=== PATIENT | male | born 1950 | race Caucasian/White ===

== ENCOUNTER → 2017-04-24 | Outpatient (CLI) | payer OTHER ==
[~2017-04-24] MED LIST: AMLO5TAB2 PO; ASPI-496 PO; ATOR80TA PO; CHLO5CAP2 PO; DICY10CA3 PO; MULT-257 PO; MULT1TAB13 PO; NEBI20TA2 PO; OMEP1CAP25 PO; TRAM-28 PO
[2017-04-24 10:09] LABS: ASPARTATE AMINO TRANSFERASE 32 U/L (15-37); BLOOD UREA NITROGEN 24 mg/dL (7-18)
== END | disposition home or self-care (01) ==
LOC: LAB 09:40
PROVIDERS: ATTEND Internal Medicine Gastroenterology
DX: K21.9 Gastro-esophageal reflux disease without esophagitis (principal); R74.8 Abnormal levels of other serum enzymes; K57.30 Diverticulosis of large intestine without perforation or abscess without bleeding; E78.00 Pure hypercholesterolemia, unspecified; G47.30 Sleep apnea, unspecified
CPT/HCPCS: 36415; 80053; 82784; 82977; 83516; 85025

== ENCOUNTER → 2017-06-12 | Outpatient (CLI) | payer OTHER ==
[~2017-06-12] MED LIST changes: -TRAM-28 PO; +TRAM-47 PO
== END | disposition home or self-care (01) ==
LOC: CFH 15:17
PROVIDERS: ATTEND Internal Medicine Cardiovascular Disease
DX: I08.3 Combined rheumatic disorders of mitral, aortic and tricuspid valves (principal); I25.10 Atherosclerotic heart disease of native coronary artery without angina pectoris; I10 Essential (primary) hypertension
CPT/HCPCS: 93306

== ENCOUNTER → 2017-06-13 | Outpatient (CLI) | payer OTHER ==
[2017-06-13 09:13] LABS: ASPARTATE AMINO TRANSFERASE 27 U/L (15-37); BLOOD UREA NITROGEN 21 mg/dL (7-18)
== END | disposition home or self-care (01) ==
LOC: LAB 08:50
PROVIDERS: ATTEND Internal Medicine Cardiovascular Disease
DX: E78.2 Mixed hyperlipidemia (principal); I10 Essential (primary) hypertension
CPT/HCPCS: 36415; 80053; 80061

== ENCOUNTER → 2017-09-29 | Outpatient (CLI) | payer OTHER | END | disposition home or self-care (01) | LOC: CFH 15:30 | PROVIDERS: ATTEND Registered Nurse Registered Nurse First Assistant | DX: M41.86 Other forms of scoliosis, lumbar region (principal); M51.36 Other intervertebral disc degeneration, lumbar region; M48.061 Spinal stenosis, lumbar region without neurogenic claudication; M25.78 Osteophyte, vertebrae; M48.07 Spinal stenosis, lumbosacral region | CPT/HCPCS: 72110; 72148 ==

== ENCOUNTER → 2017-12-26 | Outpatient (CLI) | payer OTHER ==
[2017-12-26 15:46] LABS: BILIRUBIN, DIRECT 0.2 mg/dL (0.1-0.2); BILIRUBIN,INDIRECT 0.6 mg/dL (0.0-2.0); BILIRUBIN,TOTAL 0.8 mg/dL (0.2-1.0); TOTAL PROTEIN 7.4 g/dL (6.4-8.2)
== END | disposition home or self-care (01) ==
LOC: LAB 15:17
PROVIDERS: ATTEND Internal Medicine Gastroenterology
DX: R94.5 Abnormal results of liver function studies (principal); R74.8 Abnormal levels of other serum enzymes
CPT/HCPCS: 36415; 80076

== ENCOUNTER → 2018-04-23 | Outpatient (CLI) | payer OTHER | END | disposition home or self-care (01) | LOC: LAB 09:01 | PROVIDERS: ATTEND Internal Medicine Gastroenterology | DX: I10 Essential (primary) hypertension (principal); K21.9 Gastro-esophageal reflux disease without esophagitis; G47.30 Sleep apnea, unspecified; E78.00 Pure hypercholesterolemia, unspecified; E55.9 Vitamin D deficiency, unspecified; M54.9 Dorsalgia, unspecified; R94.5 Abnormal results of liver function studies; R10.13 Epigastric pain | CPT/HCPCS: 82172; 82247; 82465; 82947; 82977; 83010; 83883; 84450; 84460; 84478 ==

== ENCOUNTER → 2018-07-14 | Outpatient (CLI) | payer OTHER ==
[~2018-07-14] MED LIST changes: -AMLO5TAB2 PO; +AMLO5TAB7 PO
== END | disposition home or self-care (01) ==
LOC: CFH 15:18
PROVIDERS: ATTEND Internal Medicine Cardiovascular Disease
DX: I08.1 Rheumatic disorders of both mitral and tricuspid valves (principal); I11.9 Hypertensive heart disease without heart failure; I25.10 Atherosclerotic heart disease of native coronary artery without angina pectoris; E78.5 Hyperlipidemia, unspecified
CPT/HCPCS: 93306

== ENCOUNTER → 2018-08-10 | Outpatient (CLI) | payer OTHER ==
[~2018-08-10] MED LIST changes: +CALCIUM PO; +CHOL200024 PO; +ESOM40CA PO; +METO50TA4 PO; +NORT25CA PO
[2018-08-10 16:20] LABS: BASOPHILS # (AUTO) 0.02 x10^3/uL (0-0.1); BASOPHILS % (AUTO) 0 % (0-1); EOSINOPHILS # (AUTO) 0.11 x10^3/uL (0-0.4); EOSINOPHILS % (AUTO) 2 % (1-7); LYMPHOCYTES % (AUTO) 20 % (22-44); MD NO; MEAN CORPUSCULAR HGB CONC 32.5 g/dL (33.2-36.2); MEAN CORPUSCULAR VOLUME 95.2 fL (81-97); MONOCYTES # (AUTO) 0.46 x10^3/uL (0.2-0.8); MONOCYTES % (AUTO) 7 % (2-9); NEUTROPHILS # (AUTO) 4.37 x10^3/uL (1.8-6.8); NEUTROPHILS % (AUTO) 71 % (42-75); PLATELET COUNT 235 x10^3/uL (130-400); RED BLOOD COUNT 5.25 x10^6/uL (4.38-5.82); RED CELL DISTRIBUTION WIDTH 13.6 % (9.4-14.8)
[2018-08-10 16:28] LABS: ANION GAP 4 mmol/L (5-15); CALCIUM 8.8 mg/dL (8.5-10.1); CHLORIDE 107 mmol/L (98-107); CREATININE 1.05 mg/dL (0.7-1.3)
== END | disposition home or self-care (01) ==
LOC: STAR 15:21
PROVIDERS: ATTEND Internal Medicine Cardiovascular Disease
DX: Z01.818 Encounter for other preprocedural examination (principal); I42.9 Cardiomyopathy, unspecified; I25.10 Atherosclerotic heart disease of native coronary artery without angina pectoris; R93.1 Abnormal findings on diagnostic imaging of heart and coronary circulation
CPT/HCPCS: 36415; 80048; 85025

== ENCOUNTER 2018-08-14 08:03 | Day surgery (SDC) | payer OTHER ==
[~2018-08-14] VITALS: Ht 180.3 cm; Wt 100.0 kg
[2018-08-14] MEDS ORDERED: SODIUM CHLORIDE 0.9% 1,000 ML IV ONE (08:10)
[2018-08-14] MEDS ORDERED: DIPHENHYDRAMINE 50 MG/ML, 1ML IVPush ONE (08:30)
[2018-08-14] MEDS ORDERED: HEPARIN 1,000 UNITS/ML, 10ML ONE (09:25)
[2018-08-14] MEDS ORDERED: FENTANYL PF 100 MCG/2ML ONE (09:25)
[2018-08-14] MEDS ORDERED: LIDOCAINE/PF 1%, 30ML ONE (09:25)
[2018-08-14] MEDS ORDERED: MIDAZOLAM 1 MG/ML, 2ML ONE ×2 (09:25→09:53)
[2018-08-14] MEDS ORDERED: VERAPAMIL 2.5 MG/ML, 2ML ONE (09:25)
[2018-08-14] MEDS ORDERED: NITROGLYCERIN 5 MG/ML, 10ML ONE (09:26)
[2018-08-14] MEDS ORDERED: SODIUM CHLORIDE 0.9% 1,000 ML IV SCH (11:40)
[2018-08-14] MEDS ORDERED: METO100T5 PO (12:12)
[2018-08-14] MEDS ORDERED: SPIR25TA PO (12:13)
[2018-08-14] MEDS ORDERED: VALS160T3 PO (12:16)
== END 2018-08-14 14:22 | disposition home or self-care (01) ==
LOC: CACL 08:03 → EDSTATUS 09:30 → CACL 14:22
PROVIDERS: ATTEND Internal Medicine Cardiovascular Disease
DX: I25.10 Atherosclerotic heart disease of native coronary artery without angina pectoris (principal); I42.9 Cardiomyopathy, unspecified; I10 Essential (primary) hypertension
CPT/HCPCS: 93460; 99156; 99157; C1760; C1769; C1894; J1644; J2250; J3010; J3490; Q9967; J1200

== ENCOUNTER → 2018-10-16 | Outpatient (CLI) | payer OTHER ==
[~2018-10-16] MED LIST changes: +AMLO-150 PO; -AMLO5TAB7 PO; +METO100T5 PO; -NORT25CA PO; +NORT25CA78 PO; +SPIR25TA PO; +VALS160T3 PO
[2018-10-16 11:17] LABS: ANION GAP 6 mmol/L (5-15); CALCIUM 8.9 mg/dL (8.5-10.1); CHLORIDE 104 mmol/L (98-107); CHOLESTEROL, TOTAL 152 mg/dL (140-239); CREATININE 1.06 mg/dL (0.7-1.3); TRIGLYCERIDES 90 mg/dL (50-200); VLDL CHOLESTEROL 18 mg/dL (0-25)
[2018-10-16 11:19] LABS: CHOL/HDL RATIO 2.3; HDL CHOL % 43 % (26-37); HDL CHOLESTEROL (DIRECT) 66 mg/dL (40-60); LDL CHOLESTEROL,CALCULATED 68 mg/dL (54-169)
== END | disposition home or self-care (01) ==
LOC: LAB 10:55
PROVIDERS: ATTEND Internal Medicine Cardiovascular Disease
DX: I25.10 Atherosclerotic heart disease of native coronary artery without angina pectoris (principal); I42.9 Cardiomyopathy, unspecified; I27.0 Primary pulmonary hypertension; J96.11 Chronic respiratory failure with hypoxia; G47.30 Sleep apnea, unspecified; E78.2 Mixed hyperlipidemia; R00.2 Palpitations
CPT/HCPCS: 36415; 80048; 80061

== ENCOUNTER → 2019-01-08 | Outpatient (CLI) | payer OTHER | END | disposition home or self-care (01) | LOC: CFH 15:14 | PROVIDERS: ATTEND Internal Medicine Cardiovascular Disease | DX: I08.8 Other rheumatic multiple valve diseases (principal); I25.10 Atherosclerotic heart disease of native coronary artery without angina pectoris; I42.9 Cardiomyopathy, unspecified | CPT/HCPCS: 93306 ==

== ENCOUNTER → 2019-04-28 | Outpatient (CLI) | payer OTHER ==
[~2019-04-28] MED LIST changes: +IRBE150T25 PO
[2019-04-28 09:10] LABS: BASOPHILS # (AUTO) 0.02 x10^3/uL (0-0.1); BASOPHILS % (AUTO) 0 % (0-1); EOSINOPHILS # (AUTO) 0.13 x10^3/uL (0-0.4); EOSINOPHILS % (AUTO) 3 % (1-7); LYMPHOCYTES # (AUTO) 0.88 x10^3/uL (1-3.4); LYMPHOCYTES % (AUTO) 19 % (22-44); MD NO; MEAN CORPUSCULAR HEMOGLOBIN 30.8 pg (27.5-34.5); MEAN CORPUSCULAR HGB CONC 31.7 g/dL (33.2-36.2); MEAN PLATELET VOLUME 7.5 fL (7.4-10.4); MONOCYTES # (AUTO) 0.39 x10^3/uL (0.2-0.8); MONOCYTES % (AUTO) 9 % (2-9); NEUTROPHILS # (AUTO) 3.15 x10^3/uL (1.8-6.8); NEUTROPHILS % (AUTO) 69 % (42-75); PLATELET COUNT 203 x10^3/uL (130-400); RED BLOOD COUNT 4.48 x10^6/uL (4.38-5.82)
[2019-04-28 09:21] LABS: ALANINE AMINOTRANSFERASE 35 U/L (12-78); ALBUMIN 3.9 g/dL (3.4-5.0); ANION GAP 5 mmol/L (5-15); CALCIUM 8.7 mg/dL (8.5-10.1); CHLORIDE 105 mmol/L (98-107); CHOLESTEROL, TOTAL 160 mg/dL (140-239); CREATININE 0.98 mg/dL (0.7-1.3)
[2019-04-28 09:23] LABS: ALKALINE PHOSPHATASE 126 U/L (45-117); BILIRUBIN,TOTAL 0.5 mg/dL (0.2-1.0); CHOL/HDL RATIO 2.4; HDL CHOL % 42 % (26-37); HDL CHOLESTEROL (DIRECT) 67 mg/dL (40-60); LDL CHOLESTEROL,CALCULATED 71 mg/dL (54-169); LDL/HDL RATIO 1.1 (0.5-3.0); TOTAL PROTEIN 7.2 g/dL (6.4-8.2); TRIGLYCERIDES 111 mg/dL (50-200); VLDL CHOLESTEROL 22 mg/dL (0-25)
== END | disposition home or self-care (01) ==
LOC: LAB 08:57
PROVIDERS: ATTEND Family Medicine
DX: I27.20 Pulmonary hypertension, unspecified (principal)
CPT/HCPCS: 36415; 80053; 80061; 85025

== ENCOUNTER 2019-05-04 16:12 | Inpatient (IN) | payer OTHER, MEDICARE ==
[~2019-05-04] VITALS: Ht 180.3 cm; Wt 98.9 kg
[~2019-05-04 16:12] MED LIST changes: -IRBE150T25 PO
--- NOTE | 2019-05-04 16:41 | NUR ---
PT PRESENTING TO ER FOR NEW ONSET OF AFIB, PT REORTING FEELING SOB WITH WALKING AROUND X1 WK. NO CP, N/V OR DIZZINESS. CONNECTED TO ALL MONIORING, HR RANGING BETWEEN 115-145, ALL OTHER VSS. NOTED OCCASSIONAL PVCs AND COUPLES. IV PLACED, LABS DRAWN. AT BEDSIDE. CALL LIGHT WITHIN REACH. AWAITING MD ASSESSMENT AND ORDERS AT THIS TIME
[2019-05-04] MEDS ORDERED: IRBE150T25 PO (16:47)
--- NOTE | 2019-05-04 17:06 | NUR ---
REPORT GIVEN TO GERRY SALINAS
--- NOTE | 2019-05-04 17:13 | NUR ---
PT. IS RESTING WITHOUT CONCERNS. PT. STATES HE IS IN A POSITION OF COMFORT. SIDERAILS REMAIN UP X 2. PT. HAS THE CP MONITOR IN PLACE. CALL LIGHT IS AT HIS SIDE.
--- NOTE | 2019-05-04 17:17 | NUR ---
DR. LATIF AND DR. STEPHENS ARE AT THE BEDSIDE DISCUSSING THE PLAN OF CARE.
[2019-05-04] MEDS ORDERED: DILTIAZEM 5 MG/ML, 5ML IV ONE (17:30)
[2019-05-04] MEDS ORDERED: SODIUM CHLORIDE FLUSH 10ML SYR IVF ONE (17:30)
[2019-05-04] MEDS ORDERED: DILTIAZEM 5 MG/ML, 5ML ONE (17:39)
[2019-05-04 18:00] LABS: BASOPHILS # (AUTO) 0.02 x10^3/uL (0-0.1); BASOPHILS % (AUTO) 0 % (0-1); EOSINOPHILS # (AUTO) 0.12 x10^3/uL (0-0.4); EOSINOPHILS % (AUTO) 2 % (1-7); LYMPHOCYTES # (AUTO) 1.13 x10^3/uL (1-3.4); LYMPHOCYTES % (AUTO) 21 % (22-44); MD NO; MEAN CORPUSCULAR HEMOGLOBIN 31.9 pg (27.5-34.5); MEAN CORPUSCULAR HGB CONC 32.6 g/dL (33.2-36.2); MEAN CORPUSCULAR VOLUME 97.7 fL (81-97); MEAN PLATELET VOLUME 8.5 fL (7.4-10.4); MONOCYTES # (AUTO) 0.48 x10^3/uL (0.2-0.8); MONOCYTES % (AUTO) 9 % (2-9); NEUTROPHILS # (AUTO) 3.55 x10^3/uL (1.8-6.8); NEUTROPHILS % (AUTO) 67 % (42-75); PLATELET COUNT 208 x10^3/uL (130-400); RED BLOOD COUNT 4.48 x10^6/uL (4.38-5.82); RED CELL DISTRIBUTION WIDTH 14.5 % (9.4-14.8)
[2019-05-04 18:09] LABS: ALBUMIN 3.9 g/dL (3.4-5.0); ANION GAP 6 mmol/L (5-15); CALCIUM 8.8 mg/dL (8.5-10.1); CHLORIDE 106 mmol/L (98-107)
--- NOTE | 2019-05-04 18:09 | NUR ---
PT. WAS GIVEN CARDIAZEM SLOW IV OVER 7 MINUTES. PT. TOLERATED THE MEDICATION WITHOUT PROBLEMS. VSS. PT. REMAINS MONITORED AND DENIES C/O PAIN OR DISCOMFORT AT THIS TIME.
[2019-05-04 18:13] LABS: FREE T4 (FREE THYROXINE) 0.84 ng/dL (0.76-1.46); TROPONIN I < 0.015 ng/mL (0.000-0.045)
[2019-05-04 18:20] LABS: INTERNATIONAL NORMALIZED RATIO 1.09 (0.93-1.1); PROTHROMBIN TIME 11.4 Seconds (9.6-11.5)
[2019-05-04] MEDS ORDERED: BISACODYL 10 MG SUPP PR PRN (18:30)
[2019-05-04] MEDS: DILTIAZEM 30 MG TABLET PO SCH (18:30)
[2019-05-04] MEDS ORDERED: ACETAMINOPHEN 650 MG/20.3 ML UDC PO PRN (18:30)
[2019-05-04] MEDS ORDERED: ONDANSETRON 2MG/ML, 2ML IV PRN (18:30)
[2019-05-04] MEDS ORDERED: DILTIAZEM 5 MG/ML, 5ML IVPush PRN (18:30)
[2019-05-04] MEDS ORDERED: BISACODYL 5 MG EC TABLET PO PRN (18:30)
[2019-05-04] MEDS ORDERED: ZOLPIDEM 5MG TABLET PO PRN (18:30)
--- NOTE | 2019-05-04 20:01 | NUR ---
REPORT CALLED TO [facility] ROOM [id number]
[2019-05-04] MEDS ORDERED: METOPROLOL SUCCINATE 100 MG TAB.ER.24H PO SCH (21:30)
[2019-05-04 22:00] VITALS: BP 152/74
[2019-05-04] MEDS: APIXABAN 5 MG TABLET PO SCH (22:34)
[2019-05-04] MEDS: DICYCLOMINE 10 MG CAPSULE PO SCH (22:34)
[2019-05-04] MEDS: ATORVASTATIN 80 MG TABLET PO SCH (22:34)
[2019-05-04] MEDS: CHLORDIAZEPOXIDE 5 MG CAPSULE PO SCH (22:36)
[2019-05-04] MEDS: NORTRIPTYLINE 25 MG CAPSULE PO SCH (23:07)
[2019-05-04] MEDS: SODIUM CHLORIDE FLUSH 10ML SYR IVF SCH (23:08)
[2019-05-05 00:18] VITALS: BP 146/98
[2019-05-05] MEDS: DILTIAZEM 30 MG TABLET PO SCH ×2 (00:20→05:59)
[2019-05-05] MEDS: PANTOPROZOLE 40MG TABLET PO SCH ×2 (05:59→17:30)
[2019-05-05 07:01] VITALS: BP 112/72
[2019-05-05] MEDS ORDERED: ATORVASTATIN 80 MG TABLET PO SCH (09:00)
[2019-05-05] MEDS ORDERED: METOPROLOL SUCCINATE 100 MG TAB.ER.24H PO SCH ×2 (09:00→21:00)
[2019-05-05] MEDS: SODIUM CHLORIDE FLUSH 10ML SYR IVF SCH ×2 (09:00→20:45)
[2019-05-05] MEDS: VALSARTAN 160 MG TABLET PO SCH (09:00)
[2019-05-05] MEDS: APIXABAN 5 MG TABLET PO SCH ×2 (09:21→20:47)
[2019-05-05] MEDS: MULTIVITAMINS/MINERALS TABLET PO SCH (09:21)
[2019-05-05] MEDS: DICYCLOMINE 10 MG CAPSULE PO SCH ×2 (09:21→20:46)
[2019-05-05] MEDS: CHLORDIAZEPOXIDE 5 MG CAPSULE PO SCH ×2 (09:22→20:46)
[2019-05-05] MEDS: CHOLECALCIFEROL 1,000 UNIT TABLET PO SCH (09:22)
[2019-05-05] MEDS: SPIRONOLACTONE 25 MG TABLET PO SCH (09:22)
[2019-05-05] MEDS: IRBESARTAN 150 MG TABLET PO SCH (09:28)
[2019-05-05] MEDS: CALCIUM CARBONATE 500 MG TABLET PO SCH (09:28)
[2019-05-05] MEDS ORDERED: PROPOFOL 10 MG/ML, 20ML ONE (11:37)
[2019-05-05 13:45] VITALS: BP 115/74
[2019-05-05 19:53] VITALS: BP 106/77
[2019-05-05 20:43] VITALS: BP 106/77
[2019-05-05] MEDS: NORTRIPTYLINE 25 MG CAPSULE PO SCH (20:46)
[2019-05-05] MEDS: ATORVASTATIN 80 MG TABLET PO SCH (20:48)
[2019-05-06 02:05] VITALS: BP 119/73
[2019-05-06] MEDS: PANTOPROZOLE 40MG TABLET PO SCH ×2 (06:07→15:51)
[2019-05-06 08:37] VITALS: BP 125/87
[2019-05-06] MEDS: CHLORDIAZEPOXIDE 5 MG CAPSULE PO SCH ×2 (09:01→20:00)
[2019-05-06] MEDS: IRBESARTAN 150 MG TABLET PO SCH (09:01)
[2019-05-06] MEDS: CHOLECALCIFEROL 1,000 UNIT TABLET PO SCH (09:02)
[2019-05-06] MEDS: SPIRONOLACTONE 25 MG TABLET PO SCH (09:02)
[2019-05-06] MEDS: CALCIUM CARBONATE 500 MG TABLET PO SCH (09:02)
[2019-05-06] MEDS: VALSARTAN 160 MG TABLET PO SCH (09:02)
[2019-05-06] MEDS: APIXABAN 5 MG TABLET PO SCH ×2 (09:02→20:00)
[2019-05-06] MEDS: DICYCLOMINE 10 MG CAPSULE PO SCH ×2 (09:02→19:59)
[2019-05-06] MEDS: MULTIVITAMINS/MINERALS TABLET PO SCH (09:02)
[2019-05-06] MEDS: SODIUM CHLORIDE FLUSH 10ML SYR IVF SCH ×2 (09:03→20:00)
[2019-05-06] MEDS ORDERED: AMIODARONE IN D5W 100 ML IV ONE (09:30)
[2019-05-06] MEDS ORDERED: AMIODARONE 150MG/100ML PREMIX IV ONE (10:00)
[2019-05-06] MEDS ORDERED: [UNRECOGNIZED DRUG - REMARK] IV PRN (10:00)
[2019-05-06] MEDS ORDERED: FUROSEMIDE 20 MG/2 ML IV ONE (10:00)
[2019-05-06] MEDS ORDERED: OMNIPAQUE 350 MG/ML, 75ML BOTTLE ONE (10:19)
[2019-05-06] MEDS ORDERED: AMIODARONE 900 MG in DEXTROSE 5% 482 ML IV PRN (10:30)
[2019-05-06 14:00] VITALS: BP 117/79
[2019-05-06] MEDS: NORTRIPTYLINE 25 MG CAPSULE PO SCH (19:59)
[2019-05-06] MEDS: ATORVASTATIN 80 MG TABLET PO SCH (19:59)
[2019-05-06 20:24] VITALS: BP 149/88
[2019-05-07 02:15] VITALS: BP 126/82
[2019-05-07 05:47] LABS: BASOPHILS # (AUTO) 0.02 x10^3/uL (0-0.1); BASOPHILS % (AUTO) 0 % (0-1); EOSINOPHILS # (AUTO) 0.13 x10^3/uL (0-0.4); EOSINOPHILS % (AUTO) 2 % (1-7); LYMPHOCYTES # (AUTO) 0.71 x10^3/uL (1-3.4); LYMPHOCYTES % (AUTO) 12 % (22-44); MD NO; MEAN CORPUSCULAR HGB CONC 32.1 g/dL (33.2-36.2); MEAN CORPUSCULAR VOLUME 96.5 fL (81-97); MEAN PLATELET VOLUME 8.3 fL (7.4-10.4); MONOCYTES # (AUTO) 0.57 x10^3/uL (0.2-0.8); MONOCYTES % (AUTO) 9 % (2-9); NEUTROPHILS # (AUTO) 4.68 x10^3/uL (1.8-6.8); NEUTROPHILS % (AUTO) 77 % (42-75); PLATELET COUNT 172 x10^3/uL (130-400); RED BLOOD COUNT 4.52 x10^6/uL (4.38-5.82); RED CELL DISTRIBUTION WIDTH 14.3 % (9.4-14.8)
[2019-05-07 05:57] LABS: ANION GAP 5 mmol/L (5-15); CALCIUM 9.1 mg/dL (8.5-10.1); CHLORIDE 102 mmol/L (98-107)
[2019-05-07 05:58] LABS: CREATININE 0.92 mg/dL (0.7-1.3)
[2019-05-07] MEDS: PANTOPROZOLE 40MG TABLET PO SCH ×2 (06:22→17:13)
[2019-05-07] MEDS: SODIUM CHLORIDE FLUSH 10ML SYR IVF SCH ×2 (08:29→21:34)
[2019-05-07] MEDS: CALCIUM CARBONATE 500 MG TABLET PO SCH (08:29)
[2019-05-07] MEDS: APIXABAN 5 MG TABLET PO SCH ×2 (08:30→21:34)
[2019-05-07] MEDS: CHOLECALCIFEROL 1,000 UNIT TABLET PO SCH (08:30)
[2019-05-07] MEDS: IRBESARTAN 150 MG TABLET PO SCH (08:30)
[2019-05-07] MEDS: MULTIVITAMINS/MINERALS TABLET PO SCH (08:30)
[2019-05-07] MEDS: DICYCLOMINE 10 MG CAPSULE PO SCH ×2 (08:30→21:34)
[2019-05-07] MEDS: CHLORDIAZEPOXIDE 5 MG CAPSULE PO SCH (08:30)
[2019-05-07] MEDS: SPIRONOLACTONE 25 MG TABLET PO SCH (08:30)
[2019-05-07 08:57] VITALS: BP 156/89
[2019-05-07] MEDS ORDERED: AMIODARONE 900 MG in DEXTROSE 5% 482 ML IV PRN (10:30)
[2019-05-07 11:21] VITALS: BP 134/89
[2019-05-07] MEDS: METOPROLOL SUCCINATE 50 MG TAB.ER.24H PO SCH (11:27)
[2019-05-07] MEDS: AMIODARONE 200 MG TABLET PO SCH ×2 (11:27→21:34)
[2019-05-07 17:16] VITALS: BP 130/90
[2019-05-07 20:00] VITALS: BP 124/80
[2019-05-07] MEDS: ATORVASTATIN 80 MG TABLET PO SCH (21:34)
[2019-05-08 02:45] VITALS: BP 134/72
[2019-05-08 06:35] VITALS: BP 129/67
[2019-05-08] MEDS: PANTOPROZOLE 40MG TABLET PO SCH ×2 (06:38→15:57)
[2019-05-08] MEDS: METOPROLOL SUCCINATE 50 MG TAB.ER.24H PO SCH (06:38)
[2019-05-08 09:11] VITALS: BP 110/71
[2019-05-08] MEDS: IRBESARTAN 150 MG TABLET PO SCH (09:15)
[2019-05-08] MEDS: AMIODARONE 200 MG TABLET PO SCH ×2 (09:15→21:14)
[2019-05-08] MEDS: CHOLECALCIFEROL 1,000 UNIT TABLET PO SCH (09:15)
[2019-05-08] MEDS: CALCIUM CARBONATE 500 MG TABLET PO SCH (09:15)
[2019-05-08] MEDS: SPIRONOLACTONE 25 MG TABLET PO SCH (09:16)
[2019-05-08] MEDS: APIXABAN 5 MG TABLET PO SCH ×2 (09:16→21:14)
[2019-05-08] MEDS: SODIUM CHLORIDE FLUSH 10ML SYR IVF SCH ×2 (09:16→21:13)
[2019-05-08] MEDS: MULTIVITAMINS/MINERALS TABLET PO SCH (09:16)
[2019-05-08] MEDS: DICYCLOMINE 10 MG CAPSULE PO SCH ×2 (09:27→21:13)
[2019-05-08 14:14] VITALS: BP 129/78
[2019-05-08 20:11] VITALS: BP 114/69
[2019-05-08 21:10] VITALS: BP 144/81
[2019-05-08] MEDS: ATORVASTATIN 80 MG TABLET PO SCH (21:13)
[2019-05-09 02:07] VITALS: BP 98/62
[2019-05-09] MEDS: METOPROLOL SUCCINATE 50 MG TAB.ER.24H PO SCH (05:41)
[2019-05-09] MEDS: PANTOPROZOLE 40MG TABLET PO SCH (05:41)
[2019-05-09 07:45] VITALS: BP 121/76
[2019-05-09] MEDS: APIXABAN 5 MG TABLET PO SCH (08:35)
[2019-05-09] MEDS: CHOLECALCIFEROL 1,000 UNIT TABLET PO SCH (08:35)
[2019-05-09] MEDS: SPIRONOLACTONE 25 MG TABLET PO SCH (08:35)
[2019-05-09] MEDS: MULTIVITAMINS/MINERALS TABLET PO SCH (08:35)
[2019-05-09] MEDS: CALCIUM CARBONATE 500 MG TABLET PO SCH (08:35)
[2019-05-09] MEDS: DICYCLOMINE 10 MG CAPSULE PO SCH (08:35)
[2019-05-09] MEDS: IRBESARTAN 150 MG TABLET PO SCH (08:36)
[2019-05-09] MEDS: AMIODARONE 200 MG TABLET PO SCH (08:36)
[2019-05-09] MEDS: SODIUM CHLORIDE FLUSH 10ML SYR IVF SCH (08:36)
[2019-05-09] MEDS ORDERED: METO-93 PO (08:50)
[2019-05-09] MEDS ORDERED: AMIO200T42 PO (08:50)
[2019-05-09] MEDS ORDERED: APIX5TAB PO (08:50)
== END 2019-05-09 11:48 | disposition home or self-care (01) | DRG 308 ==
LOC: ED 18:21 → 5SO 18:26 → ED 19:27 → 5SO 05-05 14:03
PROVIDERS: ADMIT Internal Medicine Cardiovascular Disease; ATTEND Internal Medicine Cardiovascular Disease
PROC: B246ZZ4 Ultrasonography of Right and Left Heart, Transesophageal (ICD-10-PCS; 2019-05-05)
PROC: 5A2204Z Restoration of Cardiac Rhythm, Single (ICD-10-PCS; principal; 2019-05-05 11:30)
DX: I48.0 Paroxysmal atrial fibrillation (principal); I50.43 Acute on chronic combined systolic (congestive) and diastolic (congestive) heart failure; D68.69 Other thrombophilia; I42.0 Dilated cardiomyopathy; I47.1 Supraventricular tachycardia; I48.4 Atypical atrial flutter; E66.9 Obesity, unspecified; Z96.653 Presence of artificial knee joint, bilateral; E78.5 Hyperlipidemia, unspecified; G47.33 Obstructive sleep apnea (adult) (pediatric); I11.0 Hypertensive heart disease with heart failure; I25.10 Atherosclerotic heart disease of native coronary artery without angina pectoris; I27.20 Pulmonary hypertension, unspecified; I45.81 Long QT syndrome; M19.90 Unspecified osteoarthritis, unspecified site; Z79.01 Long term (current) use of anticoagulants; Z68.30 Body mass index [BMI] 30.0-30.9, adult; Z87.891 Personal history of nicotine dependence
CPT/HCPCS: 36415; 71045; 71260; 80048; 82040; 84439; 84443; 84484; 85025; 85610; 85730; 92960; 93005; 93312; 93321; 93325; 96374; 99285; C8929; G0378; J2704; Q9957; Q9967; J0282; J1940; J7060

== ENCOUNTER 2019-05-25 08:05 | Emergency (ER) | payer OTHER ==
[~2019-05-25] VITALS: Ht 180.3 cm; Wt 97.6 kg
[2019-05-25 10:57] VITALS: BP 131/65
== END 2019-05-25 12:13 | disposition home or self-care (01) ==
LOC: ED 09:30
DX: K29.50 Unspecified chronic gastritis without bleeding (principal); R10.13 Epigastric pain; R07.89 Other chest pain; I48.91 Unspecified atrial fibrillation; E78.5 Hyperlipidemia, unspecified; I10 Essential (primary) hypertension; G89.29 Other chronic pain
CPT/HCPCS: 36415; 71045; 80053; 81003; 83690; 84484; 85025; 93005; 99284

== ENCOUNTER 2019-05-29 09:16 | Outpatient (CLI) | payer OTHER | END 2019-05-29 23:59 | disposition home or self-care (01) | LOC: RAD 09:16 | PROVIDERS: ATTEND Internal Medicine Gastroenterology | DX: K76.0 Fatty (change of) liver, not elsewhere classified (principal) | CPT/HCPCS: 93975 ==

== ENCOUNTER 2019-09-20 15:25 | Outpatient (CLI) ==
[~2019-09-20 15:25] MED LIST changes: +AMIO200T42 PO; +APIX5TAB PO; +IRBE150T25 PO; +METO-93 PO
== END 2019-09-20 23:59 | disposition home or self-care (01) ==
LOC: RAD 15:25
PROVIDERS: ATTEND Internal Medicine Cardiovascular Disease
DX: M19.012 Primary osteoarthritis, left shoulder (principal); M19.011 Primary osteoarthritis, right shoulder

== ENCOUNTER → 2020-03-23 | Outpatient (CLI) | payer OTHER ==
[~2020-03-23] MED LIST changes: -IRBE150T25 PO; +IRBE150T9 PO
[2020-03-23 10:11] LABS: ALANINE AMINOTRANSFERASE 34 U/L (12-78); ALBUMIN 3.5 g/dL (3.4-5.0); ANION GAP 6 mmol/L (5-15); CALCIUM 8.7 mg/dL (8.5-10.1); CHLORIDE 106 mmol/L (98-107); CHOLESTEROL, TOTAL 179 mg/dL (140-239); CREATININE 1.03 mg/dL (0.7-1.3); TRIGLYCERIDES 109 mg/dL (50-200); VLDL CHOLESTEROL 22 mg/dL (0-25)
[2020-03-23 10:21] LABS: ALKALINE PHOSPHATASE 108 U/L (45-117); BILIRUBIN,TOTAL 0.6 mg/dL (0.2-1.0); CHOL/HDL RATIO 2.3; HDL CHOL % 44 % (26-37); HDL CHOLESTEROL (DIRECT) 79 mg/dL (40-60); LDL CHOLESTEROL,CALCULATED 78 mg/dL (54-169); TOTAL PROTEIN 7.3 g/dL (6.4-8.2)
== END | disposition home or self-care (01) ==
LOC: LAB 09:44
PROVIDERS: ATTEND Internal Medicine Cardiovascular Disease
DX: E78.2 Mixed hyperlipidemia (principal); G47.30 Sleep apnea, unspecified; I10 Essential (primary) hypertension; I25.10 Atherosclerotic heart disease of native coronary artery without angina pectoris; I48.0 Paroxysmal atrial fibrillation; Z79.01 Long term (current) use of anticoagulants
CPT/HCPCS: 36415; 80053; 80061; 83036; 84443

== ENCOUNTER → 2020-05-24 | Outpatient (CLI) | payer OTHER ==
[2020-05-24 09:29] LABS: MICROSCOPIC NOT IND
[2020-05-24 09:39] LABS: BASOPHILS # (AUTO) 0.01 x10^3/uL (0-0.1); BASOPHILS % (AUTO) 0 % (0-1); EOSINOPHILS # (AUTO) 0.04 x10^3/uL (0-0.4); EOSINOPHILS % (AUTO) 1 % (1-7); LYMPHOCYTES # (AUTO) 0.66 x10^3/uL (1-3.4); LYMPHOCYTES % (AUTO) 14 % (22-44); MD NO; MEAN CORPUSCULAR HEMOGLOBIN 31.4 pg (27.5-34.5); MEAN CORPUSCULAR HGB CONC 32.2 g/dL (33.2-36.2); MEAN CORPUSCULAR VOLUME 97.7 fL (81-97); MONOCYTES # (AUTO) 0.34 x10^3/uL (0.2-0.8); MONOCYTES % (AUTO) 8 % (2-9); NEUTROPHILS # (AUTO) 3.53 x10^3/uL (1.8-6.8); NEUTROPHILS % (AUTO) 77 % (42-75); PLATELET COUNT 228 x10^3/uL (130-400)
[2020-05-24 09:40] LABS: ALANINE AMINOTRANSFERASE 38 U/L (12-78); ALBUMIN 3.7 g/dL (3.4-5.0); ANION GAP 4 mmol/L (5-15); CALCIUM 9.2 mg/dL (8.5-10.1); CHLORIDE 108 mmol/L (98-107); CHOLESTEROL, TOTAL 190 mg/dL (140-239); CREATININE 1.14 mg/dL (0.7-1.3); TRIGLYCERIDES 99 mg/dL (50-200); VLDL CHOLESTEROL 20 mg/dL (0-25)
[2020-05-24 09:42] LABS: ALKALINE PHOSPHATASE 99 U/L (45-117); BILIRUBIN,TOTAL 0.6 mg/dL (0.2-1.0); CHOL/HDL RATIO 2.1; HDL CHOL % 48 % (26-37); HDL CHOLESTEROL (DIRECT) 91 mg/dL (40-60); LDL CHOLESTEROL,CALCULATED 79 mg/dL (54-169); LDL/HDL RATIO 0.9 (0.5-3.0); TOTAL PROTEIN 7.1 g/dL (6.4-8.2)
== END | disposition home or self-care (01) ==
LOC: LAB 09:03
PROVIDERS: ATTEND Family Medicine
DX: R10.84 Generalized abdominal pain (principal)
CPT/HCPCS: 36415; 80053; 80061; 81003; 83690; 85025

== ENCOUNTER → 2020-07-10 | Outpatient (CLI) | payer OTHER | END | disposition home or self-care (01) | LOC: LAB 08:32 | PROVIDERS: ATTEND Internal Medicine Cardiovascular Disease | DX: E78.2 Mixed hyperlipidemia (principal); G47.30 Sleep apnea, unspecified; I10 Essential (primary) hypertension; I25.10 Atherosclerotic heart disease of native coronary artery without angina pectoris; I42.0 Dilated cardiomyopathy; I48.0 Paroxysmal atrial fibrillation; Z79.01 Long term (current) use of anticoagulants | CPT/HCPCS: 36415; 83036 ==

== ENCOUNTER → 2020-07-11 | Outpatient (CLI) | payer OTHER | END | disposition home or self-care (01) | LOC: CVU 09:33 | PROVIDERS: ATTEND Internal Medicine Cardiovascular Disease | DX: I08.8 Other rheumatic multiple valve diseases (principal); I11.9 Hypertensive heart disease without heart failure; I42.0 Dilated cardiomyopathy | CPT/HCPCS: 93306; 93356 ==

== ENCOUNTER 2020-09-11 12:38 | Emergency (ER) | payer OTHER ==
[~2020-09-11] VITALS: Ht 180.3 cm; Wt 101.7 kg
[2020-09-11 13:05] VITALS: BP 128/74
--- NOTE | 2020-09-11 14:00 | NUR ---
ice pack applied to xray at [id number]
== END 2020-09-11 16:03 | disposition home or self-care (01) ==
LOC: ED 15:45
DX: S83.92XA Sprain of unspecified site of left knee, initial encounter (principal); M17.12 Unilateral primary osteoarthritis, left knee; I48.91 Unspecified atrial fibrillation; I10 Essential (primary) hypertension; E78.5 Hyperlipidemia, unspecified; X50.1XXA Overexertion from prolonged static or awkward postures, initial encounter; Y93.89 Activity, other specified; Y92.098 Other place in other non-institutional residence as the place of occurrence of the external cause; Y99.8 Other external cause status
CPT/HCPCS: 29505; 99283

== ENCOUNTER → 2020-11-22 | Outpatient (CLI) | payer OTHER ==
[2020-11-22 11:14] LABS: BASOPHILS % (AUTO) 0 % (0-1); EOSINOPHILS % (AUTO) 2 % (1-7); LYMPHOCYTES % (AUTO) 19 % (22-44); MEAN CORPUSCULAR HEMOGLOBIN 31.8 pg (27.5-34.5); MEAN CORPUSCULAR HGB CONC 33.1 g/dL (33.2-36.2); MEAN PLATELET VOLUME 8.4 fL (7.4-10.4); MONOCYTES % (AUTO) 9 % (2-9); NEUTROPHILS % (AUTO) 70 % (42-75); PLATELET COUNT 236 x10^3/uL (130-400); RED BLOOD COUNT 4.47 x10^6/uL (4.38-5.82); RED CELL DISTRIBUTION WIDTH 13.7 % (9.4-14.8)
[2020-11-22 11:19] LABS: MD NO
[2020-11-22 11:23] LABS: ALANINE AMINOTRANSFERASE 45 U/L (12-78); ALBUMIN 3.9 g/dL (3.4-5.0); ANION GAP 4 mmol/L (5-15); CALCIUM 9.1 mg/dL (8.5-10.1); CHLORIDE 106 mmol/L (98-107); CREATININE 1.08 mg/dL (0.7-1.3)
[2020-11-22 11:25] LABS: ALKALINE PHOSPHATASE 154 U/L (45-117); BILIRUBIN,TOTAL 0.3 mg/dL (0.2-1.0); TOTAL PROTEIN 7.9 g/dL (6.4-8.2)
[2020-11-22 11:35] LABS: MICROSCOPIC NOT IND
== END | disposition home or self-care (01) ==
LOC: STAR 09:11
PROVIDERS: ATTEND Orthopaedic Surgery
DX: Z01.812 Encounter for preprocedural laboratory examination (principal); Z20.822 Contact with and (suspected) exposure to COVID-19; M17.12 Unilateral primary osteoarthritis, left knee; R94.31 Abnormal electrocardiogram [ECG] [EKG]
CPT/HCPCS: 80053; 81003; 85025; 87081; 87635; 87806; 93005; G0475

== ENCOUNTER 2020-11-28 08:12 | Observation (INO) | payer OTHER ==
[~2020-11-28] VITALS: Ht 180.3 cm; Wt 98.2 kg
[~2020-11-28 08:12] MED LIST changes: +BACITRACIN 50,000 UNIT ONE; +EPINEPHRINE 1 MG/ML, 1ML ONE; +FENTANYL PF 250 MCG/5ML ONE; +KETOROLAC 60 MG/2 ML ONE; +ROPIvacaine/PF 0.2%, 20 ML ONE; +SODIUM CHLORIDE 0.9% 50 ML ONE; +TRANEXAMIC ACID 100 MG/ML, 10ML ONE; +morphine SULFATE/PF 1 MG/ML, 10ML ONE
[2020-11-28 09:10] VITALS: BP 183/96
[2020-11-28] MEDS ORDERED: AMIO200T42 PO (09:16)
[2020-11-28] MEDS ORDERED: GABA300C PO (09:16)
[2020-11-28] MEDS ORDERED: OMEP40CA42 PO (09:16)
[2020-11-28] MEDS ORDERED: METO50TA82 PO (09:16)
[2020-11-28] MEDS ORDERED: CHLORHEXIDINE 15 ML UDC MM ONE (09:30)
[2020-11-28] MEDS ORDERED: ACETAMINOPHEN 500 MG TABLET PO ONE (09:30)
[2020-11-28] MEDS ORDERED: VANCOMYCIN PMX 1GM/200ML 200 ML IV ONE (09:30)
[2020-11-28] MEDS ORDERED: LACTATED RINGERS 1,000 ML IV SCH (09:30)
[2020-11-28] MEDS ORDERED: ACETAMINOPHEN 325 MG TABLET PO PRN (10:00)
[2020-11-28] MEDS ORDERED: ZOLPIDEM 5MG TABLET PO PRN (10:00)
[2020-11-28] MEDS ORDERED: TRANEXAMIC ACID 1,000 MG in SODIUM CHLORIDE 0.9% 100 ML IV ONE (10:00)
[2020-11-28] MEDS ORDERED: morphine SULFATE 10 MG/ML, 1ML IVPush PRN (10:00)
[2020-11-28] MEDS ORDERED: LORazepam 2 MG/ML, 1ML IVPush PRN (10:00)
[2020-11-28] MEDS: D5%-0.45% NACL 1,000 ML IV SCH ×3 (10:00→21:45)
[2020-11-28] MEDS ORDERED: MIDAZOLAM 1 MG/ML, 2ML ONE (10:23)
[2020-11-28] MEDS ORDERED: DIPHENHYDRAMINE 25 MG CAPSULE PO PRN (10:30)
[2020-11-28] MEDS ORDERED: LABETALOL 5MG/ML, 20ML IV PRN (11:00)
[2020-11-28] MEDS ORDERED: PROMETHAZINE 25 MG SUPP PR PRN (11:00)
[2020-11-28] MEDS ORDERED: PROMETHAZINE 25 MG/ML, 1ML IVPush PRN (11:00)
[2020-11-28] MEDS ORDERED: ONDANSETRON 2MG/ML, 2ML IVPush PRN (11:00)
[2020-11-28] MEDS ORDERED: METHOCARBAMOL 1,000 MG in DEXTROSE 5% 100 ML IV ONE (11:00)
[2020-11-28] MEDS ORDERED: OXYcodone 5 MG/5 ML ORAL.SOL UDC PO PRN (11:00)
[2020-11-28] MEDS ORDERED: hydrALAzine 20 MG/ML, 1ML IV PRN (11:00)
[2020-11-28] MEDS ORDERED: FENTANYL PF 100 MCG/2ML ONE (11:58)
[2020-11-28] MEDS ORDERED: HYDROmorphone 1 MG/ML, 1ML INJ ONE ×2 (11:58→12:47)
[2020-11-28] MEDS ORDERED: OXYcodone 5 MG/5 ML ORAL.SOL UDC ONE (11:58)
[2020-11-28] MEDS: FENTANYL PF 100 MCG/2ML IV PRN ×2 (12:00→12:37)
[2020-11-28] MEDS: HYDROmorphone 1 MG/ML, 1ML INJ IVPush PRN ×3 (12:15→12:48)
[2020-11-28] MEDS ORDERED: hydrALAzine 20 MG/ML, 1ML ONE (12:25)
[2020-11-28] MEDS ORDERED: PROPOFOL 10 MG/ML, 20ML ONE (13:14)
[2020-11-28] MEDS ORDERED: DEXAMETHASONE 4 MG/ML, 1ML ONE (13:14)
[2020-11-28] MEDS ORDERED: CEFAZOLIN 1,000 MG ONE (13:14)
[2020-11-28] MEDS ORDERED: ONDANSETRON 2MG/ML, 2ML ONE (13:14)
[2020-11-28 13:15] VITALS: BP 149/74
[2020-11-28] MEDS ORDERED: DICYCLOMINE 10 MG CAPSULE PO PRN (14:00)
[2020-11-28] MEDS: OXYcodone/APAP 7.5/325MG TABLET PO PRN (16:47)
[2020-11-28] MEDS: CEFAZOLIN PMX 2GM/50ML 50 ML IVPB SCH (18:41)
[2020-11-28 18:43] VITALS: BP 140/66
[2020-11-28] MEDS ORDERED: ATORVASTATIN 80 MG TABLET PO SCH (21:00)
[2020-11-28] MEDS: APIXABAN 5 MG TABLET PO SCH (21:46)
[2020-11-28] MEDS: GABAPENTIN 300 MG CAPSULE PO SCH (21:46)
[2020-11-28] MEDS: ONDANSETRON 2MG/ML, 2ML IVPush PRN (21:46)
[2020-11-28 23:02] VITALS: BP 152/72
[2020-11-29] MEDS: D5%-0.45% NACL 1,000 ML IV SCH ×3 (01:44→10:26)
[2020-11-29] MEDS: CEFAZOLIN PMX 2GM/50ML 50 ML IVPB SCH ×2 (02:29→10:26)
[2020-11-29 04:17] VITALS: BP 116/60
[2020-11-29] MEDS: ONDANSETRON 2MG/ML, 2ML IVPush PRN (05:54)
[2020-11-29] MEDS ORDERED: OMEPRAZOLE 20 MG CAPSULE.DR PO SCH (06:00)
[2020-11-29 07:48] VITALS: BP 107/58
[2020-11-29] MEDS ORDERED: ASPIRIN 325 MG TABLET EC PO SCH (08:00)
[2020-11-29] MEDS: GABAPENTIN 300 MG CAPSULE PO SCH (08:39)
[2020-11-29] MEDS: OXYcodone/APAP 7.5/325MG TABLET PO PRN ×2 (08:39→12:26)
[2020-11-29] MEDS: APIXABAN 5 MG TABLET PO SCH (08:39)
[2020-11-29] MEDS ORDERED: METOPROLOL TARTRATE 50 MG TAB PO SCH (09:00)
[2020-11-29] MEDS ORDERED: AMIODARONE 200 MG TABLET PO SCH (09:00)
[2020-11-29] MEDS ORDERED: SPIRONOLACTONE 25 MG TABLET PO SCH (09:00)
[2020-11-29] MEDS ORDERED: IRBESARTAN 150 MG TABLET PO SCH (09:00)
[2020-11-29] MEDS ORDERED: APIXABAN 5 MG TABLET PO SCH (09:00)
[2020-11-29] MEDS ORDERED: VANCOMYCIN PMX 1GM/200ML 200 ML IVPB ONE (09:30)
[2020-11-29 13:30] VITALS: BP 89/50
[2020-11-29 15:40] VITALS: BP 103/52
[2020-11-29] MEDS ORDERED: DOCUSATE 100 MG CAPSULE PO SCH (21:00)
== END 2020-11-29 15:55 | disposition home or self-care (01) ==
LOC: OUT 08:12 → 4NE 13:11 → OUT 13:17 → INTOOBSV 13:17 → OBSVTOIN 13:17
PROVIDERS: ADMIT Orthopaedic Surgery; ATTEND Orthopaedic Surgery
DX: M17.12 Unilateral primary osteoarthritis, left knee (principal); I10 Essential (primary) hypertension; I48.91 Unspecified atrial fibrillation; G47.33 Obstructive sleep apnea (adult) (pediatric); Z79.899 Other long term (current) drug therapy; Z79.01 Long term (current) use of anticoagulants
CPT/HCPCS: 27447; 73564; 96361; 96365; 96366; 96367; 96375; 96376; 97110; 97161; 97165; C1713; C1776; G0378; J0171; J0360; J0690; J1100; J1170; J1885; J2250; J2270; J2274; J2405; J2704; J2795; J2800; J3010; J3370; J7120